=== PATIENT | male | born 1960 | race Caucasian/White ===

== ENCOUNTER 2024-02-21 17:37 | Inpatient (IN) ==
--- NOTE | 2024-02-21 18:02 | Emergency Department Note ---
Impression & Plan Chest pain, ST elevation (STEMI) myocardial infarction, Elevated troponin, Complete heart block, ACS (acute coronary syndrome) ED Provider Note HISTORY OF PRESENT ILLNESS: Patient is a 63-year-old male presenting with chest pain. Patient reports that around 1600 this evening while he was eating dessert he developed substernal chest pain. Describes it as a pressure sensation that lasted for about 5 minutes. He denies any associated shortness of breath or nausea. He states that the pain went away on its own but then he had recurrent episodes of pain over the next 2 hours, prompting him to call 911. He states that earlier today he was having some neck pain. He denies ever having chest pain like this before. Denies any DVT or PE history. Denies any history of cardiac stents. He does report a significant family history of early cardiac in his sister. His last stress test was over 20 years ago. He is not on any anticoagulation or antiplatelet therapy. He was given 324 mg of aspirin prehospital and 2 nitro. On arrival to the ER, the patient is chest pain-free. ROS: as above PHYSICAL EXAM: Constitutional: Patient appears in no acute distress. HENT: Head: Normocephalic and atraumatic. Eyes: EOMI, PERRL Mouth/Throat: Mucous membranes moist. Neck: Trachea midline. Neck supple. Cardiovascular: RRR, No murmurs, rubs or gallops. Intact distal pulses. Pulmonary/Chest: No respiratory distress. Breath sounds clear and equal bilaterally. No wheezes or rales. N Abdominal: Abdomen soft, no tenderness, rebound or guarding. Musculoskeletal: No edema, tenderness or deformity noted. Skin: Warm and dry. No rash, erythema, pallor or cyanosis Psychiatric: Appropriate mood and affect for situation. Neurological: Alert and keenly responsive. CN II-XII grossly intact, moving all extremities equally and fully. MDM: - Vitals signs stable. - History obtained via patient. History as above. - Chronic conditions affecting care: GERD - Differential diagnoses include, but are not limited to: Acute coronary syndrome; pulmonary embolism; dissection; tension pneumothorax; esophageal rupture; pneumonia - Order placed for continuous cardiac monitoring. At this time, monitor showed rate of 75 bpm with normal sinus rhythm, per my interpretation. - External medical records reviewed. EMS run sheet was reviewed. Patient was vitally stable and route. He was given 324 mg p.o. aspirin and 2 nitroglycerin. - EKG interpreted by myself showed normal sinus rhythm. Rate 69 bpm. QT 406. No acute ischemic changes. Noted to have a right bundle branch block. - Laboratory workup interpreted by myself showed normal WBC; normal PT/INR; stable electrolytes; elevated troponin (201.8); normal lipase - CXR negative for pneumonia or widened mediastinum, per my interpretation - Patient initially was going to be admitted to the hospital service. Low weight heparin bolus and drip was initially ordered. However, the patient's blood pressure dropped to 80s over 60s and his heart rate was remaining in the 30s to 40s. - Heparin drip was canceled. On reassessment, the patient just reports feeling lightheaded and woozy. He is denying any chest pain or back pain. Started on 2L NS through IV. - Repeat EKG at 1934 interpreted by myself showed normal sinus rhythm. Noted to have some ST depression in aVL and some ST elevation in lead III and aVF. Patient is still not complaining of any chest pain. However, with EKG changes, HEART alert was called at 1948 - Patient given 2L NS in ER, but his blood pressure continued to be in the 80s over 60s systolic and heart rate dropped into the 30s. Telemetry showed that the patient was in complete heart block. Repeat EKG obtained at 1956 showed sinus bradycardia. Rate 39 bpm. Patient is noted to be in a complete heart block at this time. Dobutamine gtt also started for some pressor support. - Given hypotension and bradycardia in the setting of a complete heart block, decision was made to transcutaneously pace the patient. Pacemaker was set to initial heart rate of 60 bpm and patient paced with 20 mEq. - puppy trainer, Dr. Johnson, presented to patient's bedside at 19:55. He consented the patient for Film Maker for transvenous pacing and potential cardiac stenting. - Patient's HR in the 60s-70s via transcutaneous pacing. Repeat blood pressure in the 90s systolic - Patient taken emergently to cardiac catheterization lab. [facility] I have personally spent 63 minutes of critical care time in the direct management of this patient. This includes bedside care, interpretation of diagnostic studies, and testing, discussion with consultants, patient, and family members, and other required patient management activities. This 63 minutes is in excess of all separately billable procedures. 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 Past Med/Surg History Problem List (Updated 02/21/24 @ 20:59 by Nathalie Feldman MD) ACS (acute coronary syndrome) (Acute) Complete heart block (Acute) Elevated troponin (Acute) ST elevation (STEMI) myocardial infarction (Acute) Chest pain (Acute) Conductive hearing loss in right ear Dysfunction of right eustachian tube GERD (gastroesophageal reflux disease) Seasonal allergies Left cornea abrasion (Acute) Surgical History (Updated 01/19/24 @ 09:45 by Dejah Avilez MA) History of colonoscopy Family History (Updated 01/19/24 @ 09:46 by Dejah Avilez MA) Father Hypertension Heart disease Mother Colorectal cancer Other No family history of adverse response to anesthesia No family history of bleeding disorder Social History (Updated 01/19/24 @ 09:46 by Dejah Avilez MA) Smoking Status: Never smoker Preferred Language: Hungarian marital status: current occupational status: employed current occupation: [employer] Feels Safe at Home: Yes Allergies Allergies Allergy/AdvReac Type Severity Reaction Status Date / Time No Known Allergies Allergy Unverified 08/06/14 09:52 Home Meds Home Medications Medication Instructions Recorded Confirmed loratadine 10 mg tablet (Claritin) 10 mg PO DAILY 01/19/24 02/21/24 omega 1-ggc-hin-fish oil 1,000 mg 1 cap PO DAILY 02/21/24 02/21/24 (120 mg-180 mg) capsule (Fish Oil) Previous Rx's Medication Instructions Recorded azelastine 137 mcg (0.1 %) nasal 2 spray intranasal DAILY #30 mL 01/19/24 spray aerosol fluticasone propionate 50 2 spray intranasal DAILY #15.8 01/19/24 mcg/actuation nasal grams spray,suspension Results & Data (ED) Vital Signs Vital Signs - 24 hr 02/21/24 17:41 02/21/24 17:41 02/21/24 17:50 Temperature 36.8 C Temperature Source Oral Pulse Rate 77 Pulse Rate [Apical] Pulse Rate from SpO2 Sensor Pulse Rhythm [Apical] Pulse Strength [Apical] Respiratory Rate 18 Respiratory Effort / Characteristics Non-Labored Spontaneous Respiratory Depth Normal Respiratory Pattern Regular Blood Pressure 136/78 Blood Pressure [Right Arm] Blood Pressure Mean 97 Blood Pressure Mean [Right Arm] Blood Pressure Position [Right Arm] Pulse Oximetry 96 96 96 Oxygen Delivery Method Room Air Room Air Room Air Oxygen Flow Rate 0 Sepsis Recent Fever Within 48 Hours No Sepsis New/Unexplained Change in Mental Status N/A Sepsis Action Taken by Nursing No Action Required Oxygen Flow Rate - Titration 0 02/21/24 18:49 02/21/24 18:57 02/21/24 19:11 Temperature Temperature Source Pulse Rate 68 75 Pulse Rate [Apical] 50 L Pulse Rate from SpO2 Sensor 73 Pulse Rhythm [Apical] Pulse Strength [Apical] Respiratory Rate 22 15 Respiratory Effort / Characteristics Non-Labored Spontaneous Respiratory Depth Normal Respiratory Pattern Regular Blood Pressure 139/85 Blood Pressure [Right Arm] 139/85 Blood Pressure Mean 103 Blood Pressure Mean [Right Arm] 103 Blood Pressure Position [Right Arm] Pulse Oximetry 95 97 Oxygen Delivery Method Room Air Room Air Oxygen Flow Rate Sepsis Recent Fever Within 48 Hours Sepsis New/Unexplained Change in Mental Status Sepsis Action Taken by Nursing Oxygen Flow Rate - Titration 02/21/24 19:27 02/21/24 19:42 02/21/24 19:44 Temperature Temperature Source Pulse Rate 55 L 40 L Pulse Rate [Apical] 36 L Pulse Rate from SpO2 Sensor 56 L 40 L Pulse Rhythm [Apical] Pulse Strength [Apical] Respiratory Rate 14 14 12 Respiratory Effort / Characteristics Respiratory Depth Respiratory Pattern Blood Pressure 71/45 L Blood Pressure [Right Arm] 75/42 L Blood Pressure Mean 53 Blood Pressure Mean [Right Arm] 53 Blood Pressure Position [Right Arm] Pulse Oximetry 97 98 97 Oxygen Delivery Method Room Air Room Air Room Air Oxygen Flow Rate Sepsis Recent Fever Within 48 Hours Sepsis New/Unexplained Change in Mental Status Sepsis Action Taken by Nursing Oxygen Flow Rate - Titration 02/21/24 19:46 02/21/24 19:53 02/21/24 20:03 Temperature Temperature Source Pulse Rate 28 L 43 L 57 L Pulse Rate [Apical] Pulse Rate from SpO2 Sensor 44 L Pulse Rhythm [Apical] Pulse Strength [Apical] Respiratory Rate 14 Respiratory Effort / Characteristics Respiratory Depth Respiratory Pattern Blood Pressure 59/39 L Blood Pressure [Right Arm] Blood Pressure Mean 45 Blood Pressure Mean [Right Arm] Blood Pressure Position [Right Arm] Pulse Oximetry 96 Oxygen Delivery Method Room Air Oxygen Flow Rate Sepsis Recent Fever Within 48 Hours Sepsis New/Unexplained Change in Mental Status Sepsis Action Taken by Nursing Oxygen Flow Rate - Titration 02/21/24 20:10 02/21/24 20:12 Temperature Temperature Source Pulse Rate Pulse Rate [Apical] 62 70 Pulse Rate from SpO2 Sensor Pulse Rhythm [Apical] Irregular Regular Pulse Strength [Apical] Normal Respiratory Rate 17 15 Respiratory Effort / Characteristics Non-Labored Accessory Muscle Use Non-Labored Spontaneous Respiratory Depth Normal Normal Respiratory Pattern Regular Regular Blood Pressure Blood Pressure [Right Arm] 81/51 L 92/70 L Blood Pressure Mean Blood Pressure Mean [Right Arm] 61 77 Blood Pressure Position [Right Arm] Sitting Sitting Pulse Oximetry 98 98 Oxygen Delivery Method Nasal Cannula Room Air Oxygen Flow Rate 4 Sepsis Recent Fever Within 48 Hours Sepsis New/Unexplained Change in Mental Status Sepsis Action Taken by Nursing Oxygen Flow Rate - Titration Laboratory Data 02/21/24 17:45 02/21/24 17:45 Lab Results 02/21/24 02/21/24 Range/Units 17:45 19:56 WBC 5.55 (4.8-10.8) K/ul RBC 4.62 L (4.70-6.10) M/uL Hgb 14.7 (14.0-18.0) g/dl Hct 41.8 L (42.0-52.0) % MCV 90.5 (80.0-100.0) fL MCH 31.8 (25.0-34.0) pg MCHC 35.2 (32.0-36.0) g/dL RDW Std Deviation 39.9 (36.4-46.3) fL RDW Coeff of Arun 12.1 (11.5-14.5) % Plt Count 223 (130-400) K/uL MPV 9.3 L (9.4-12.4) fL Immature Gran % (Auto) 0.4 % Neut % (Auto) 72.1 % Lymph % (Auto) 17.5 % [place] % (Auto) 5.9 % Eos % (Auto) 3.4 % Baso % (Auto) 0.7 % Neut # (Auto) 4.00 (1.40-6.50) K/uL Lymph # (Auto) 0.97 L (1.20-3.40) K/uL [place] # (Auto) 0.33 (0.11-0.59) K/uL Eos # (Auto) 0.19 (0.00-0.50) K/uL Baso # (Auto) 0.04 (0.00-0.20) K/uL Immature Gran # (Auto) 0.02 (0.01-0.20) K/uL PT 10.3 (9.0-12.0) Seconds INR 0.9 (0.9-1.1) Sodium 139 (136-145) mmol/L Potassium 3.7 (3.5-5.1) mmol/L Chloride 106 (98-107) mmol/L Carbon Dioxide 25 (21-32) mmol/L Anion Gap 8 (3-11) BUN 20 (6-23) mg/dl Creatinine 0.97 (0.6-1.4) mg/dl Est Cr Clr Drug Dosing 80.0 ml/min Est GFR ( Amer) 97.3 ml/min Est GFR (Non-Af Amer) 83.9 ml/min BUN/Creatinine Ratio 20.6 H (10-20) Glucose 125 H (70-99(Fasting)) mg/dl Calcium 9.6 (8.6-10.3) mg/dl Magnesium 2.2 (1.7-2.4) mg/dl Total Bilirubin 0.4 (0.2-1.0) mg/dl AST 19 (13-39) U/L ALT 20 (7-52) U/L Alkaline Phosphatase 77 (34-104) U/L Troponin I High Sens 201.8 H* 269.3 H* D (0-20) pg/ml Total Protein 7.1 (6.0-8.3) gm/dl Albumin 4.6 (3.4-5.0) gm/dl Globulin 2.5 (2.5-4.0) gm/dl Albumin/Globulin Ratio 1.8 (0.9-2) Lipase 24 (11-82) U/L Administered Medications Dobutamine HCl/Dextrose (Dobutamine / D5w) 500 mg in 250 mls @ 12.48 mls/hr IV .Q20H2M [facility]; Protocol Stop: 03/22/24 19:59 Last Admin: 02/21/24 20:01 Dose: 5 mcg/kg/min, 12.5 mls/hr Documented By: ONELIA Co-signed By: SAW Discontinued Medications Dobutamine HCl/Dextrose (Dobutamine 500mg / 250ml D5w) Confirm Administered Dose 500 mg IV .STK-MED ONE Stop: 02/21/24 19:57 Last Admin: 02/21/24 20:04 Dose: Not Given Documented By: ONELIA Sodium Chloride (Nss) 1,000 mls @ 999 mls/hr IV .Q1H1M ONE Stop: 02/21/24 19:02 Last Infusion: 02/21/24 20:04 Dose: Infused Documented By: Admin: 02/21/24 18:16 Dose: 999 mls/hr Documented By: ROMAIN Sodium Chloride (Nss) 1,000 mls @ 999 mls/hr IV .Q1H1M ONE Stop: 02/21/24 20:40 Last Admin: 02/21/24 19:43 Dose: 999 mls/hr Documented By: DUANE Imaging Data Radiologist's Impression: Chest X-Ray 02/21/24 17:50 XR chest 1V portable HISTORY: 63 years-old Male Chest pain, nonspecific acute chest pain COMPARISON: None TECHNIQUE: AP view of the chest FINDINGS: Cardiomediastinal and hilar silhouettes are within normal limits. No pneumothorax or pleural effusion. The lungs are clear. Bones appear intact. IMPRESSION: No acute process. ACT 112: Negative or not required by law. The above report was generated using voice recognition software. It may contain grammatical, syntax or spelling errors. Electronically signed by: Alvarez Cnodon M.D. 02/21/2024 6:31 PM Discharge Plan Visit Data Chief Complaint: Chest Pain Stated Complaint: Chest pain ED Provider: Nathalie Feldman Discharge Problem: Chest pain, ST elevation (STEMI) myocardial infarction, Elevated troponin, Complete heart block, ACS (acute coronary syndrome) Patient Disposition: Admitted As Inpatient
[2024-02-21] MEDS: SODIUM CHLORIDE 0.9% 1,000 ML IV ONE ×2 (18:16→19:43)
--- NOTE | 2024-02-21 18:33 | XRay Report ---
XR chest 1V portable HISTORY: 63 years-old Male Chest pain, nonspecific acute chest pain COMPARISON: None TECHNIQUE: AP view of the chest FINDINGS: Cardiomediastinal and hilar silhouettes are within normal limits. No pneumothorax or pleural effusion . The lungs are clear. Bones appear intact. IMPRESSION: No acute process. ACT 112: Negative or not required by law. The above report was generated using voice recognition software. It may contain grammatical, syntax o r spelling errors. Electronically signed by: Alvarez Condon M.D. 02/21/2024 6:31 PM
[2024-02-21 18:36] LABS: Basophils # (auto) 0.04 K/uL (0.00-0.20); Basophils % (auto) 0.7 %; Eosinophils # (auto) 0.19 K/uL (0.00-0.50); Eosinophils % (auto) 3.4 %; Hematocrit (blood only) 41.8 % (42.0-52.0); Hemoglobin 14.7 g/dl (14.0-18.0); Immature Granulocytes # (auto) 0.02 K/uL (0.01-0.20); Immature Granulocytes % (auto) 0.4 %; Lymphocytes # (auto) 0.97 K/uL (1.20-3.40); Lymphocytes % (auto) 17.5 %; Mean Corpuscular Hemoglobin 31.8 pg (25.0-34.0); Mean Corpuscular Hgb Conc 35.2 g/dL (32.0-36.0); Mean Corpuscular Volume 90.5 fL (80.0-100.0); Mean Platelet Volume 9.3 fL (9.4-12.4); Monocytes # (auto) 0.33 K/uL (0.11-0.59); Monocytes % (auto) 5.9 %; Neutrophils % (auto) 72.1 %; Platelet Count 223 K/uL (130-400); RDW Coefficient of Variation 12.1 % (11.5-14.5); RDW Standard Deviation 39.9 fL (36.4-46.3); Red Blood Count 4.62 M/uL (4.70-6.10); White Blood Count 5.55 K/ul (4.8-10.8)
[2024-02-21 18:59] LABS: Troponin I High Sensitivity 201.8 pg/ml (0-20)
[2024-02-21 19:01] LABS: Albumin Globulin Ratio 1.8 (0.9-2); Albumin Level 4.6 gm/dl (3.4-5.0); BUN Creatinine Ratio 20.6 (10-20); Bilirubin,Total 0.4 mg/dl (0.2-1.0); Calcium 9.6 mg/dl (8.6-10.3); Est GFR (African American) 97.3 ml/min; Est GFR (Non-African American) 83.9 ml/min; Globulin 2.5 gm/dl (2.5-4.0); Potassium 3.7 mmol/L (3.5-5.1); Total Protein 7.1 gm/dl (6.0-8.3)
[2024-02-21 19:14] LABS: INR 0.9 (0.9-1.1); Prothrombin Time 10.3 Seconds (9.0-12.0)
[2024-02-21 19:27] LABS: Magnesium 2.2 mg/dl (1.7-2.4)
[2024-02-21] MEDS ORDERED: HEPARIN SODIUM/DEXTROSE 25,000 UNITS/500 ML BAG IV SCH (19:45)
[2024-02-21] MEDS: DOBUTamine / D5W 500 MG/250 ML BAG IV SCH (20:01)
[2024-02-21] MEDS: DOBUTamine 500MG / 250ML D5W IV ONE (20:04)
[2024-02-21] MEDS: niCARdipine HCL INJ 2.5 MG/ML 10 ML AMP ONE (21:01)
[2024-02-21] MEDS: NITROGLYCERIN/D5W 100MCG/ML 20ML SYR ONE (21:02)
[2024-02-21] MEDS: FUROSEMIDE 40 MG/4 ML VIAL IV ONE (21:02)
[2024-02-21] MEDS: EPTIFIBATIDE 2 MG/ML 10 ML VIAL (CATH LAB USE ONLY) IV ONE (21:03)
[2024-02-21] MEDS: EPTIFIBATIDE 0.75 MG/ML 75MG VIAL (CATH LAB USE ONLY) IV ONE (21:03)
[2024-02-21] MEDS: MIDAZOLAM HCL 1 MG/ML 2ML VIAL ONE (21:23)
[2024-02-21] MEDS: NOREPINEPHRINE/D5W 4 MG/250 ML IV ONE (21:24)
[2024-02-21] MEDS: fentaNYL citrate PF 100 MCG/2 ML VIAL ONE (21:24)
[2024-02-21] MEDS: HEPARIN (PORCINE) 1000 UNIT/ML 10 ML (CATH LAB USE ONLY) ONE (21:24)
[2024-02-21] MEDS: IODIXANOL (VISIPAQUE) 320 MG/ML 100ML IV ONE (21:25)
[2024-02-21] MEDS: OPTIRAY 350 ONE (21:30)
[2024-02-21] MEDS: TICAGRELOR 90 MG TAB ONE (21:32)
[2024-02-21] MEDS ORDERED: ALBUT/IPRATROP 3MG/0.5MG NEB 3 ML VIAL INH PRN (21:52)
--- NOTE | 2024-02-21 21:56 | Cardiac Catheterization ---
ACC Data: Parer Cardiac Status Clinical evaluation leading to the procedure The patient presented with chest pain and EKG changes consistent with inferior ischemia complicated by complete heart block. CAD Presenation: STEMI Anginal Classification: CCS IV Heart Failure: NYHA Class: CCS II Cardiogenic Shock within 24 Hours: No Cardiac Arrest within 24 Hours: No Imaging Studies Past 6 Months: No Stress Studies Past 6 Months: No Standard Exercise Test: No Stress Echocardiogram: No Stress Testing w/SPECT MPI: No Cardiac CTA: No STEMI OR Non-STEMI Symptom Onset Date: 02/21/24 Symptom Onset Time: 18:00 Thrombolytics: No Coronary Anatomy Dominant: Right Left Main (% Stenosis): Normal LAD (% Stenosis): Mid (95%) D1 (% Stenosis): Mid (90%) R PDA (% Stenosis): Proximal (100%) Left Ventricular Angiography EF (%): No wall motion abnormality, ejection fraction 80% Mitral Regurgitation: None Diagnostic Physicians Name: Feliciano Johnson MD Status: Emergency Closure Device Percutaneous Entry Location: Femoral (Per close) Recommendations: PCI without planned CABG Lesion Segment Name: 100% mid PDA Culprit Artery: Yes Stenosis Prior to Rx (%): 100% Chronic Total Occlusion: Yes Pre-Procedure KODAK Flow: 0 Previously Treated Lesion: No Lesion Complexity: High/C Lesion Length (mm): 20 mm Thrombus Present: Yes Bifurcation Lesion: No Guidewire Across Lesion: Yes Lesion #2 Segment Name: Mid LAD Culprit Artery: No Stenosis Prior to Rx (%): 95% Chronic Total Occlusion: No IVUS: No FFR: No Pre-Procedure KODAK Flow: 2 Previously Treated Lesion: No Lesion Complexity: Non-High/Non-C Lesion Length (mm): 10 mm Thrombus Present: No Bifurcation Lesion: No Guidewire Across Lesion: No Intraprocedure Events Significant Disection: No Perforation: No Cardiac Cath Procedure Full Procedure Date February 21, 2024 Pre-Procedure Diagnosis Pre-Procedure Diagnosis: STEMI AUC Score AUC Score: 100 Post-Procedure Diagnosis Post-Procedure Diagnosis: Severe CAD and Successful PCI Procedure(s) Performed Procedure(s) Performed: Coronary Angiography, Left Heart Cath, LV Angiography, PTCA, Drug Eluting Stent and Temporary Pacemaker Mold Puller Feliciano Johnson MD Marine Service Manager(s) [place] Estimated Blood Loss Estimated Blood Loss: 20 Medication(s) Medication(s): Aspirin, Fentanyl, Heparin and Versed Medication(s): Dobutamine, heparin, Brilinta Summary of Findings The patient was brought to the cardiac catheterization laboratory with an external pacemaker in place. The right groin was prepped and draped in the usual manner. The skin and subcutaneous tissue were anesthetized with 1% lidocaine. Using a percutaneous technique a 6 [place] sheath was placed retrograde in the right common femoral vein and through the sheath under fluoroscopic control a temporary pacemaker was positioned in the right ventricle. A 6 [place] sheath was placed retrograde in the right common femoral artery. Selective angiography of the right coronary artery was performed with a Janis right 4, selective angiography of the left coronary artery system was performed with a Janis left 4 catheter. The right coronary artery is dominant the distal vessel was very tortuous and the right dominant PDA was totally occluded. The left main was normal bifurcating into a type III LAD and circumflex there was a 95% stenosis in the mid LAD immediately distal to a diagonal branch. There was a 90% stenosis in the midportion of the diagonal. The circumflex gave off a high first OM with 2 branches both of which had luminal irregularities only. The mid circumflex had luminal irregularity. Patient was bolused with 8000 units of heparin and Integrilin, the right coronary artery was engaged with a 6 [place] Amplatz guide through this guide the distal occlusion was crossed with a Bunny wire, predilatation was performed with a 2.5 mm balloon. The vessel was then sequentially stented with a 2.5 x 18 and 2 x 16 Xience stent. Attention was then turned to the LAD left main was engaged with a Janis left 4 guide. The lesion was crossed with the Bunny wire. Predilatation was performed with a 2.5 balloon. The LAD was then stented with a 3 x 16 Xience stent. At the end of the procedure the patient had KODAK-3 flow. At the end of the procedure the arterial sheath was pulled and the arteriotomy closed with Perclose. The venous sheath was sewn in place, the temporary pacemaker was left in place at demand rate of 60 at 10 mg. Hemodynamics Rest Ao:: 94/54 Final Ao: 131/69 LV: 125/7 Recommendations Recommendations: PCI without planned CABG Specimens Specimens: None Radiation Exposure (mGy) mGy 3920 DAP 377.46 Contrast (mls) 250 Procedural Complication(s) None Disposition ICU I attest to the content of the Intraoperative Record and any orders documented therein. Any exceptions are noted below. PG Care Time/CCT Total # of Minutes Spent Total Time Spent with Patient: Total time spent is greater than 50% in coordination of care (as documented) at patient's floor/unit and/or counseling patient:
--- NOTE | 2024-02-21 22:00 | History & Physical Report ---
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 While in the ED, emergent care included 2 L bolus normal saline, started on heparin drip, placed on dobutamine drip, and transcutaneous pacer Patient did have transcutaneous pacer placed during catheterization, and decision was made by cardiology to leave transcutaneous pacer in overnight Vital signs and heart rate improved and stable Aspirin 81 mg daily Brilinta 90 mg p.o. twice daily Lipitor 80 mg p.o. daily Lisinopril 2.5 mg p.o. daily Metoprolol succinate 12.5 mg p.o. daily Patient was given furosemide 40 mg IV prior to leaving the cardiac cath suite Give Klor-Con 40 mEq p.o. x 1 for a potassium of 3.7. Magnesium was 2.2 CBC with differential, chemistry profile, magnesium and troponin levels in the a.m. 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 Primary Care Provider: Crow Torres MD The patient is a 63-year-old male with past medical history including conductive hearing loss right ear, GERD, and seasonal allergies. He had initial development of chest pain around 4:00 this afternoon, about 5 minutes duration, and after he ate recurred a number of episodes afterwards, he called 911 and brought to the ED for assessment significant workup in the emergency department included a troponin 201.8, and EKG showing ST elevations in leads III and aVF with ST depressions in aVL. The patient initially had maintained blood pressure, but then developed hypotension to 75/40, and heart rhythm became variable including episodes of third-degree heart block. Heart alert was called, and patient was taken emergently to the [facility], where he received a TAISHA to a occluded RCA lesion, and TAISHA to a mid LAD lesion. Patient was then admitted to the ICU for ongoing care Allergies Allergy/AdvReac Type Severity Reaction Status Date / Time No Known Allergies Allergy Unverified 08/06/14 09:52 Home Medications Medication Instructions Recorded Confirmed Type azelastine 137 mcg (0.1 %) nasal 2 spray intranasal DAILY #30 mL 01/19/24 02/21/24 Rx spray aerosol fluticasone propionate 50 2 spray intranasal DAILY #15.8 01/19/24 02/21/24 Rx mcg/actuation nasal grams spray,suspension loratadine 10 mg tablet (Claritin) 10 mg PO DAILY 01/19/24 02/21/24 History omega 7-jyx-zjq-fish oil 1,000 mg 1 cap PO DAILY 02/21/24 02/21/24 History (120 mg-180 mg) capsule (Fish Oil) Past Med/Surg History Problem List (Updated 02/22/24 @ 04:03 by Jaime Man MD) Admitted to intensive care unit Hypotension Occlusion of right coronary artery 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 ACS (acute coronary syndrome) (Acute) Complete heart block (Acute) Elevated troponin (Acute) ST elevation (STEMI) myocardial infarction (Acute) Chest pain (Acute) Conductive hearing loss in right ear Dysfunction of right eustachian tube GERD (gastroesophageal reflux disease) Seasonal allergies Left cornea abrasion (Acute) Surgical History (Updated 01/19/24 @ 09:45 by Dejah Avilez MA) History of colonoscopy Family History (Updated 01/19/24 @ 09:46 by Dejah Avilez MA) Father Hypertension Heart disease Mother Colorectal cancer Other No family history of adverse response to anesthesia No family history of bleeding disorder Social History (Updated 01/19/24 @ 09:46 by Dejah Avilez MA) Smoking Status: Unknown if ever smoked Hx Alcohol Use: Yes Alcohol type: wine Hx Substance Use: No Preferred Language: Palestinian Communication Ability: Effective Directory Assistance Operator Required: No Beliefs That Will Affect Care: None marital status: Current Living Situation: Spouse current occupational status: employed current occupation: [employer] Other Information That Helps Us Care for You: No Feels Safe at Home: Yes Safety Concerns: Feels Safe At This Time Assistive Devices: None Review of Systems Review of Systems: The patient denies palpitations, cough, lower extremity swelling, sore throat, fevers, chills, sweats, fatigue, nausea, vomiting, diarrhea , constipation, abdominal pain, pelvic pain, blood in urine or stool, dysuria, urinary frequency or urgency, memory loss, loss of consciousness, rash, abnormal bruising or bleeding, imbalance, focal or generalized weakness, numbness or tingling in arms or legs, generalized arthralgias or myalgias, back or neck pain, or night sweats. The review of systems is otherwise negative other than for that already noted above, and at least 10 systems have been reviewed. Physical Exam Physical Exam: When seen in the ED, the patient is awake, alert and oriented 3, well developed and well nourished, normocephalic atraumatic, diaphoretic with chest pain HEENT--PERRL, EOMI, mucous membranes and oropharynx dry. Neck--supple. No JVD. No bruits. Thyroid normal, trachea midline, no adenopathy. Heart--normal S1 and S2. No murmurs, rubs or gallops. Lungs--clear bilaterally, no respiratory distress, no accessory muscle use. Abdomen--normal bowel sounds and soft. Nontender. Nondistended, no hernias or masses, no organomegaly. Extremities--no cyanosis or clubbing. No edema. Dermatologic--normal skin turgor, normal color, no abnormal lymph nodes, no rash. Neurologic--cranial nerves II through XII grossly intact. Rheumatologic--limited exam due to emergent nature of coronary issues Psychiatric--normal affect. Results & Data Results & Data Vital Signs (Past 12 Hours) Vital Signs Temp Pulse Pulse Resp BP BP Pulse Ox 02/21/24 20:12 70 15 92/70 L 98 02/21/24 20:10 62 17 81/51 L 98 02/21/24 20:03 57 L 14 59/39 L 96 02/21/24 19:53 43 L 02/21/24 19:46 28 L 02/21/24 19:44 36 L 12 75/42 L 97 02/21/24 19:42 40 L 14 71/45 L 98 02/21/24 19:27 55 L 14 97 02/21/24 19:11 50 L 15 139/85 97 02/21/24 18:57 75 22 139/85 95 02/21/24 18:49 68 02/21/24 17:50 96 02/21/24 17:41 96 02/21/24 17:41 36.8 C 77 18 136/78 96 O2 Del Method O2 Flow Rate 02/21/24 20:12 Room Air 02/21/24 20:10 Nasal Cannula 4 02/21/24 20:03 Room Air 02/21/24 19:53 02/21/24 19:46 02/21/24 19:44 Room Air 02/21/24 19:42 Room Air 02/21/24 19:27 Room Air 02/21/24 19:11 Room Air 02/21/24 18:57 Room Air 02/21/24 18:49 02/21/24 17:50 Room Air 02/21/24 17:41 Room Air 0 02/21/24 17:41 Room Air Laboratory Results Laboratory Results WBC 5.55 K/ul (4.8-10.8) 02/21/24 17:45 RBC 4.62 M/uL (4.70-6.10) L 02/21/24 17:45 Hgb 14.7 g/dl (14.0-18.0) 02/21/24 17:45 Hct 41.8 % (42.0-52.0) L 02/21/24 17:45 MCV 90.5 fL (80.0-100.0) 02/21/24 17:45 MCH 31.8 pg (25.0-34.0) 02/21/24 17:45 MCHC 35.2 g/dL (32.0-36.0) 02/21/24 17:45 RDW Std Deviation 39.9 fL (36.4-46.3) 02/21/24 17:45 RDW Coeff of Arun 12.1 % (11.5-14.5) 02/21/24 17:45 Plt Count 223 K/uL (130-400) 02/21/24 17:45 MPV 9.3 fL (9.4-12.4) L 02/21/24 17:45 Immature Gran % (Auto) 0.4 % 02/21/24 17:45 Neut % (Auto) 72.1 % 02/21/24 17:45 Lymph % (Auto) 17.5 % 02/21/24 17:45 [place] % (Auto) 5.9 % 02/21/24 17:45 Eos % (Auto) 3.4 % 02/21/24 17:45 Baso % (Auto) 0.7 % 02/21/24 17:45 Neut # (Auto) 4.00 K/uL (1.40-6.50) 02/21/24 17:45 Lymph # (Auto) 0.97 K/uL (1.20-3.40) L 02/21/24 17:45 [place] # (Auto) 0.33 K/uL (0.11-0.59) 02/21/24 17:45 Eos # (Auto) 0.19 K/uL (0.00-0.50) 02/21/24 17:45 Baso # (Auto) 0.04 K/uL (0.00-0.20) 02/21/24 17:45 Immature Gran # (Auto) 0.02 K/uL (0.01-0.20) 02/21/24 17:45 PT 10.3 Seconds (9.0-12.0) 02/21/24 17:45 INR 0.9 (0.9-1.1) 02/21/24 17:45 Activ Coag Time Kaolin 275 SECONDS (94-140) H 02/21/24 21:03 Sodium 139 mmol/L (136-145) 02/21/24 22:52 Potassium 4.0 mmol/L (3.5-5.1) 02/21/24 22:52 Chloride 107 mmol/L (98-107) 02/21/24 22:52 Carbon Dioxide 26 mmol/L (21-32) 02/21/24 22:52 Anion Gap 6 (3-11) 02/21/24 22:52 BUN 21 mg/dl (6-23) 02/21/24 22:52 Creatinine 1.12 mg/dl (0.6-1.4) 02/21/24 22:52 Est Cr Clr Drug Dosing 69.3 ml/min 02/21/24 22:52 Est GFR ( Amer) 81.7 ml/min 02/21/24 22:52 Est GFR (Non-Af Amer) 70.5 ml/min 02/21/24 22:52 BUN/Creatinine Ratio 18.8 (10-20) 02/21/24 22:52 Glucose 162 mg/dl (70-99(Fasting)) H 02/21/24 22:52 POC Glucose 128 mg/dl (70-99) H 02/21/24 23:05 Calcium 8.0 mg/dl (8.6-10.3) L 02/21/24 22:52 Magnesium 2.2 mg/dl (1.7-2.4) 02/21/24 17:45 Total Bilirubin 0.4 mg/dl (0.2-1.0) 02/21/24 17:45 AST 19 U/L (13-39) 02/21/24 17:45 ALT 20 U/L (7-52) 02/21/24 17:45 Alkaline Phosphatase 77 U/L (34-104) 02/21/24 17:45 Troponin I High Sens 1011.7 pg/ml (0-20) H* D 02/21/24 22:52 Total Protein 7.1 gm/dl (6.0-8.3) 02/21/24 17:45 Albumin 4.6 gm/dl (3.4-5.0) 02/21/24 17:45 Globulin 2.5 gm/dl (2.5-4.0) 02/21/24 17:45 Albumin/Globulin Ratio 1.8 (0.9-2) 02/21/24 17:45 Lipase 24 U/L (11-82) 02/21/24 17:45 Nasal Screen MRSA (PCR) Negative (Negative) 02/21/24 Unknown Impressions Chest X-Ray 02/21/24 17:50 XR chest 1V portable HISTORY: 63 years-old Male Chest pain, nonspecific acute chest pain COMPARISON: None TECHNIQUE: AP view of the chest FINDINGS: Cardiomediastinal and hilar silhouettes are within normal limits. No pneumothorax or pleural effusion. The lungs are clear. Bones appear intact. IMPRESSION: No acute process. ACT 112: Negative or not required by law. The above report was generated using voice recognition software. It may contain grammatical, syntax or spelling errors. Electronically signed by: Alvarez Condon M.D. 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
--- NOTE | 2024-02-21 22:42 | Critical Care Consultation ---
Date of Consultation February 21, 2024 Assessment & Plan (1) ST elevation (STEMI) myocardial infarction: Patient presented with chest pain and inferior ST elevation. Now presents to ICU s/p cardiac cath where he received 2 stents to RCA and 1 stent to LAD. No prior cardiac history. - Continue Integrilin drip until 0600 per cardiology - Hold beta-jocy/antihypertensives due to soft pressure and complete heart block. - ASA, Brilinta, statin - Follow-up TTE - Admitted to ICU for further monitoring. Continuous monitor on telemetry. Further disposition per cardiology (2) Complete heart block: Likely secondary to underlying acute coronary syndrome with culprit lesion of the RCA. Patient initially bradycardic and hypotensive and underwent transvenous pacer. Heart rate improved post cath and now sinus rhythm in the 90s. Continuous monitoring on telemetry, and will continue with transvenous pacer at rate of 60. Further management per cardiology (3) GERD (gastroesophageal reflux disease): Continue PPI History of Present Illness Attending Physician: Jaime Man MD History of Present Illness Patient is a 63-year-old male with no significant past medical history who presented to the emergency department earlier this evening with acute chest pain. Patient states that he has never had pain similar to this. On arrival to the emergency department he was noted to have ST elevation on his EKG. Heart alert was initiated he was taken to the [facility] where he received 2 stents to the RCA, and 1 stent to the LAD. Patient was bradycardic as well and transvenous pacer was inserted. He now presents to the ICU post cath for further management. On arrival to the ICU the patient is alert and oriented, a nd hemodynamically stable without acute distress. He is maintaining oxygen saturations on room air. He currently denies further chest pain. He denies recent illness or fevers, headache or congestion, cough, shortness of breath, palpitations, nausea or vomiting, abdominal pain, swelling in hands or feet,. Prior to this event he was in his normal state of health. He denies previous cardiac history. Allergies Allergy/AdvReac Type Severity Reaction Status Date / Time No Known Allergies Allergy Unverified 08/06/14 09:52 Home Medications Medication Instructions Recorded Confirmed Type azelastine 137 mcg (0.1 %) nasal 2 spray intranasal DAILY #30 mL 01/19/24 02/21/24 Rx spray aerosol fluticasone propionate 50 2 spray intranasal DAILY #15.8 01/19/24 02/21/24 Rx mcg/actuation nasal grams spray,suspension loratadine 10 mg tablet (Claritin) 10 mg PO DAILY 01/19/24 02/21/24 History omega 8-nxu-jzm-fish oil 1,000 mg 1 cap PO DAILY 02/21/24 02/21/24 History (120 mg-180 mg) capsule (Fish Oil) Patient History Surgical History (Updated 01/19/24 @ 09:45 by Dejah Avilez MA) History of colonoscopy Family History (Updated 01/19/24 @ 09:46 by Dejah Avilez MA) Father Hypertension Heart disease Mother Colorectal cancer Other No family history of adverse response to anesthesia No family history of bleeding disorder Social History (Updated 01/19/24 @ 09:46 by Dejah Avilez MA) Smoking Status: Never smoker Preferred Language: Malay marital status: current occupational status: employed current occupation: [employer] Feels Safe at Home: Yes Review of Systems Review of Systems: All systems reviewed & are unremarkable except as noted in HPI & below Physical Exam Constitutional: cooperative and comfortable Eyes: PERRL, conjunctivae normal, anicteric sclerae ENMT: external ear and nose normal, oropharynx normal Neck: trachea midline, no thyromegaly Respiratory: normal respiratory effort, lungs clear to auscultation Cardiovascular: RRR, no murmur, no edema Heart Sounds: normal S1 and normal S2; no murmur Gastrointestinal (Abdomen): normal bowel sounds, soft, nontender, no hepatosplenomegaly Musculoskeletal: no cyanosis or clubbing, extremities motor strength 5/5 Skin: no rashes, warm and dry Neurologic: PERRL, EOMI, accommodation nl, no face palsy, no dysarthria Psychiatric: A+Ox3, euthymic affect Results & Data Results & Data Vital Signs (Past 12 Hours) Vital Signs Temp Pulse Pulse Resp BP BP Pulse Ox 02/21/24 20:12 70 15 92/70 L 98 02/21/24 20:10 62 17 81/51 L 98 02/21/24 20:03 57 L 14 59/39 L 96 02/21/24 19:53 43 L 02/21/24 19:46 28 L 02/21/24 19:44 36 L 12 75/42 L 97 02/21/24 19:42 40 L 14 71/45 L 98 02/21/24 19:27 55 L 14 97 02/21/24 19:11 50 L 15 139/85 97 02/21/24 18:57 75 22 139/85 95 02/21/24 18:49 68 02/21/24 17:50 96 02/21/24 17:41 96 02/21/24 17:41 36.8 C 77 18 136/78 96 O2 Del Method O2 Flow Rate 02/21/24 20:12 Room Air 02/21/24 20:10 Nasal Cannula 4 02/21/24 20:03 Room Air 02/21/24 19:53 02/21/24 19:46 02/21/24 19:44 Room Air 02/21/24 19:42 Room Air 02/21/24 19:27 Room Air 02/21/24 19:11 Room Air 02/21/24 18:57 Room Air 02/21/24 18:49 02/21/24 17:50 Room Air 02/21/24 17:41 Room Air 0 02/21/24 17:41 Room Air Coding Level of Care Code 40132 IN/OBS CONSULT LVL 2,35M Diagnoses ST elevation (STEMI) myocardial infarction I21.3 Complete heart block I44.2 GERD (gastroesophageal reflux disease) K21.9 Time Spent (min) 38
[2024-02-21] MEDS: STAT IV Infusion **Titration per Protocol STA (22:49)
[2024-02-21] MEDS: HEPARIN SOD (PORCINE) 1000 UNIT/ML IV ONE (22:49)
[2024-02-21] MEDS: Heparin IV Adult Wt-Based Low-Dose w/ INITIAL Bolus Protocol IV STA (22:49)
[2024-02-21] MEDS: POTASSIUM CHLORIDE CRTAB 20 MEQ TABCR PO STA (22:57)
[2024-02-21 23:33] LABS: BUN Creatinine Ratio 18.8 (10-20); Creatinine Clr Calc Pharmacy 69.3 ml/min; Est GFR (African American) 81.7 ml/min; Est GFR (Non-African American) 70.5 ml/min
[2024-02-21 23:53] LABS: Troponin I High Sensitivity 1011.7 pg/ml (0-20)
--- NOTE | 2024-02-22 04:14 | Billing Data ---
Date of Service February 22, 2024 Coding Level of Care Code 18847 CRITICAL CARE M
[2024-02-22 05:07] LABS: Basophils # (auto) 0.01 K/uL (0.00-0.20); Basophils % (auto) 0.1 %; Eosinophils # (auto) 0.01 K/uL (0.00-0.50); Eosinophils % (auto) 0.1 %; Hematocrit (blood only) 40.9 % (42.0-52.0); Hemoglobin 14.1 g/dl (14.0-18.0); Immature Granulocytes # (auto) 0.01 K/uL (0.01-0.20); Immature Granulocytes % (auto) 0.1 %; Lymphocytes # (auto) 0.55 K/uL (1.20-3.40); Lymphocytes % (auto) 8.2 %; Mean Corpuscular Hemoglobin 31.2 pg (25.0-34.0); Mean Corpuscular Hgb Conc 34.5 g/dL (32.0-36.0); Mean Corpuscular Volume 90.5 fL (80.0-100.0); Monocytes # (auto) 0.38 K/uL (0.11-0.59); Monocytes % (auto) 5.6 %; Neutrophils # (auto) 5.78 K/uL (1.40-6.50); Neutrophils % (auto) 85.9 %; Platelet Count 189 K/uL (130-400); RDW Coefficient of Variation 12.4 % (11.5-14.5); Red Blood Count 4.52 M/uL (4.70-6.10); White Blood Count 6.74 K/ul (4.8-10.8)
[2024-02-22 05:25] LABS: Albumin Level 4.1 gm/dl (3.4-5.0); Bilirubin Direct 0.1 mg/dl (0-0.2); Bilirubin,Total 0.7 mg/dl (0.2-1.0); Phosphorus 3.7 mg/dl (2.5-4.9); Total Protein 6.3 gm/dl (6.0-8.3)
[2024-02-22 05:40] LABS: Troponin I High Sensitivity 3931.6 pg/ml (0-20)
[2024-02-22 05:42] LABS: Partial Thromboplastin Ratio 0.9; Partial Thromboplastin Time 25 Seconds (21-31); Prothrombin Time 10.5 Seconds (9.0-12.0)
--- NOTE | 2024-02-22 06:38 | Critical Care Progress Note ---
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: (3) Occlusion of right coronary artery: (4) ACS (acute coronary syndrome): (5) Complete heart block: (6) ST elevation (STEMI) myocardial infarction: Plan Assessment: 63 yo male who presented with acute chest pain and inferior ST elevation, admitted to the ICU s/p cardiac cath Critical care indication: risk of life-threatening complications s/p cardiac cath - 2 stents to RCA and 1 stent to LAD Plan: Neurologic CAM ICU negative Cardiac Inferior ST elevation s/p cardiac cath- 2 stent to RCA and 1 stent to LAD - ASA, Brilinta, statin - Follow up TTE - Metoprolol, lisinopril Complete heart block - Bradycardic secondary to ischemic changes to RCA - underwent transvenous pacer - Now sinus rhythm in the 90s BP stable at this time Continue monitoring on telemetry Further management by cardiology Respiratory No prior history of respiratory disease Maintaining adequate oxygen saturation 94- on Oxymask Gastrointestinal Diet: heart healthy Renal/electrolytes No significant electrolyte derangement at this time Replete electrolytes as needed Genitourinary No concerns at this time Endocrine BSG stable Continue ISS per protocol Hematologic Hgb stable at this time Will monitor for any drops in the setting of heparin gtt Follow daily CBC Infectious disease Afebrile since admission No concern for infection at this time Monitor fever curve Integumentary No concerns at this time Lines/access PIVs intact Prophylaxis DVT ppx: SCDs Thank you the opportunity to participate in this patient's care. Please see attending documentation for further recommendations. Admission and Anticipated Discharge Date Admission Date: February 21, 2024 Supervising Physician Co-Signing Physician Notes Dr. Fransico Knutson was resident physician during care of patient. I separately evaluated patient for canales portions of the history and the exam. I was present during the critical portion of medical decision making, and I discussed the case with the resident. I generally agree with the findings and plan. Patient reports that he feels like there is fluid in his lungs that he feels like he can cough up. No overt signs of congestive heart failure; has not required any support from transvenous pacer. Reviewed echocardiogram EF greater than 70% with no wall motion abnormalities. Stable for downgrade out of ICU. Subjective 63 y/o male with no significant past medical history who presented with acute chest pain founded with inferior ST elevation. He was taken to the lab cath overnight where he received 2 stents to the RCA and 1 stent to the LAD. He was bradycardic as well, and a transvenous pacer was placed. He remains oriented and alert hemodynamically stable. Denied any chest pain at the moment. He denied any headache, congestion, SOB, abdominal pain, palpitations, nausea or vomiting Review of Systems Review of Systems: All systems reviewed & are unremarkable except as noted in HPI & below Physical Exam Constitutional: WD/WN, vitals as above no acute distress Eyes: PERRL, conjunctivae normal, anicteric sclerae ENMT: external ear and nose normal, oropharynx normal Neck: trachea midline, no thyromegaly Respiratory: normal respiratory effort Auscultation: + crackles Cardiovascular: RRR, no murmur, no edema Heart Sounds: normal S1 and normal S2; no murmur Gastrointestinal (Abdomen): normal bowel sounds, soft, nontender, no hepatosplenomegaly Musculoskeletal: no cyanosis or clubbing, extremities motor strength 5/5 Skin: no rashes, warm and dry Neurologic: PERRL, EOMI, accommodation nl, no face palsy, no dysarthria Results & Data Results & Data Vital Signs (Past 12 Hours) Vital Signs Temp Pulse Pulse Resp BP BP Pulse Ox 02/22/24 05:06 97 H 13 120/80 93 02/22/24 04:00 87 14 110/73 95 02/22/24 03:30 90 18 95 02/22/24 03:03 88 21 95 02/22/24 03:02 111/73 02/22/24 02:00 36.7 C 80 16 115/77 97 02/22/24 01:06 93 H 18 113/77 98 02/22/24 00:06 91 H 25 H 124/82 95 02/22/24 00:00 91 H 02/21/24 23:05 92 H 25 H 92 02/21/24 22:47 90 19 94 02/21/24 22:19 36.4 C L 90 20 97/67 L 95 02/21/24 22:11 99 H 23 94 02/21/24 22:10 101/70 02/21/24 22:00 02/21/24 20:12 70 15 92/70 L 98 02/21/24 20:10 62 17 81/51 L 98 02/21/24 20:03 57 L 14 59/39 L 96 02/21/24 19:53 43 L 02/21/24 19:46 28 L 02/21/24 19:44 36 L 12 75/42 L 97 02/21/24 19:42 40 L 14 71/45 L 98 02/21/24 19:27 55 L 14 97 02/21/24 19:11 50 L 15 139/85 97 02/21/24 18:57 75 22 139/85 95 02/21/24 18:49 68 O2 Del Method O2 Flow Rate 02/22/24 05:06 2 02/22/24 04:00 2 02/22/24 03:30 02/22/24 03:03 2 02/22/24 03:02 02/22/24 02:00 Oxymask 10 02/22/24 01:06 02/22/24 00:06 02/22/24 00:00 02/21/24 23:05 02/21/24 22:47 02/21/24 22:19 Oxymask 15 02/21/24 22:11 02/21/24 22:10 02/21/24 22:00 Oxymask 15 02/21/24 20:12 Room Air 02/21/24 20:10 Nasal Cannula 4 02/21/24 20:03 Room Air 02/21/24 19:53 02/21/24 19:46 02/21/24 19:44 Room Air 02/21/24 19:42 Room Air 02/21/24 19:27 Room Air 02/21/24 19:11 Room Air 02/21/24 18:57 Room Air 02/21/24 18:49
--- NOTE | 2024-02-22 07:13 | XRay Report ---
XR chest 1V portable CLINICAL HISTORY: STEMI TECHNIQUE: Single frontal radiograph of the chest was obtained. Comparison: Comparison is made to chest radiograph 02/21/2024 FINDINGS: No lines and tubes are seen. The cardiomediastinal silhouette is normal. The lungs are clear. No evid ence of pleural effusion or pneumothorax. IMPRESSION: No acute chest disease. ACT 112: Negative or not required by law. Electronically signed by: Vick López M.D. 02/22/2024 7:12 AM
[2024-02-22] MEDS: ICU Protocol for HYPERglycemia SCH (07:24)
--- NOTE | 2024-02-22 08:01 | Hospitalist Progress Note ---
Date of Service February 22, 2024 Assessment & Plan (1) ST elevation (STEMI) myocardial infarction: Plan: STEMI/heart alert/intermittent complete heart block, total RCA occlusion and mid LAD occlusion with concerns for cardiogenic shock and hypotension Stent x 2 to RCA and X1 to LAD Patient did have transcutaneous pacer placed during catheterization, and decision was made by cardiology to remove transvenous pacer on 02/21 Aspirin 81 mg daily + Brilinta 90 mg p.o. twice daily Lipitor 80 mg p.o. daily Lisinopril 2.5 mg p.o. daily Metoprolol succinate 12.5 mg p.o. daily Patient was given furosemide 40 mg IV prior to leaving the cardiac cath suite Agreed from ICU. Patient's lipid panel does show LDL at 142, HDL 52 Admission and Anticipated Discharge Date Admission Date: February 21, 2024 Subjective Patient seen in company of his family he was having no further chest discomfort he had no additional heart block or need for pacemaker therapy the right groin intra-arterial pacemaker (temporary pacemaker) in place but was removed later in the day and patient downgraded to progressive care unit status Physical Exam Physical Exam: Card exam is regular Lungs are clear will listen to anteriorly Groin has pacemaker in place with bandage and there is no bruits or pulsatile masses distal capillary refill is intact to the right leg Results & Data Results & Data Vital Signs (Past 12 Hours) Vital Signs Temp Pulse Pulse Resp BP BP Pulse Ox 02/22/24 07:47 02/22/24 06:00 93 H 20 123/79 94 02/22/24 05:06 97 H 13 120/80 93 02/22/24 04:00 87 14 110/73 95 02/22/24 03:30 90 18 95 02/22/24 03:03 88 21 95 02/22/24 03:02 111/73 02/22/24 02:00 98.1 F 80 16 115/77 97 02/22/24 01:06 93 H 18 113/77 98 02/22/24 00:06 91 H 25 H 124/82 95 02/22/24 00:00 91 H 02/21/24 23:05 92 H 25 H 92 02/21/24 22:47 90 19 94 02/21/24 22:19 97.5 F L 90 20 97/67 L 95 02/21/24 22:11 99 H 23 94 02/21/24 22:10 101/70 02/21/24 22:00 02/21/24 20:12 70 15 92/70 L 98 02/21/24 20:10 62 17 81/51 L 98 02/21/24 20:03 57 L 14 59/39 L 96 O2 Del Method O2 Flow Rate 02/22/24 07:47 Oxymask 2 02/22/24 06:00 02/22/24 05:06 2 02/22/24 04:00 2 02/22/24 03:30 02/22/24 03:03 2 02/22/24 03:02 02/22/24 02:00 Oxymask 10 02/22/24 01:06 02/22/24 00:06 02/22/24 00:00 02/21/24 23:05 02/21/24 22:47 02/21/24 22:19 Oxymask 15 02/21/24 22:11 02/21/24 22:10 02/21/24 22:00 Oxymask 15 02/21/24 20:12 Room Air 02/21/24 20:10 Nasal Cannula 4 02/21/24 20:03 Room Air Laboratory Results Reviewed CBC reviewed chemistry LFTs reviewed mild transaminitis will follow PG Care Time/CCT Total # of Minutes Spent Total Time Spent with Patient: Total time spent is greater than 50% in coordination of care (as documented) at patient's floor/unit and/or counseling patient: Coding Level of Care Code 81067 SUB INP/OBS CARE 2/35MIN Diagnoses ST elevation (STEMI) myocardial infarction I21.3
[2024-02-22] MEDS: METOPROLOL SUCC 25MG EXT REL TAB PO SCH (08:28)
[2024-02-22] MEDS: ASPIRIN 81 MG ECTAB PO SCH (08:28)
[2024-02-22] MEDS: TICAGRELOR 90 MG TAB PO SCH (08:28)
[2024-02-22] MEDS: lisinopril 2.5 MG TAB PO SCH (08:28)
[2024-02-22] MEDS: ATORVASTATIN 40 MG TAB PO SCH (08:28)
[2024-02-22 08:45] LABS: Chol HDL Ratio 4.2 (0-5)
[2024-02-22] MEDS ORDERED: ROSUVASTATIN CALCIUM 20 MG TAB PO SCH (09:00)
[2024-02-22 09:10] LABS: Estimated Average Glucose 105 mg/dl; Hemoglobin A1C 5.3 % (4.5-5.6)
--- NOTE | 2024-02-22 10:16 | XCELERA ---
[id number]
[2024-02-22] MEDS ORDERED: PANTOprazole 40 MG in SYRINGE 0 ML IV SCH (11:00)
[2024-02-22] MEDS ORDERED: FUROSEMIDE INJ 20 MG/2 ML VIAL IV ONE (11:30)
--- NOTE | 2024-02-22 12:00 | Billing Data ---
Date of Service February 22, 2024 Coding Level of Care Code 90552 SUB INP/OBS CARE MIN
--- NOTE | 2024-02-22 16:22 | Cardiology Consultation ---
Date of Consultation February 22, 2024 Assessment & Plan (1) ST elevation (STEMI) myocardial infarction: -troponin has peaked at 11,000. -echocardiogram notes hyperdynamic systolic function, LVH, and no wall motion abnormalities. -continue Brilinta, aspirin, metoprolol succinate, and lisinopril. -dual anti-platelet therapy for least 1 year. (2) Complete heart block: -likely secondary to the acute event. -pacemaker has not fired during his ICU stay. -will remove pacemaker lead. (3) Hypercholesterolemia: -continue high-intensity statin. History of Present Illness Attending Physician: Barrera Giang MD History of Present Illness Mr. Blevins is a 63-year-old male admitted yesterday as a heart alert. This consultation was ordered to assistance cardiac management. The patient was in his usual state of health until yesterday afternoon when he began to notice intermittent episodes substernal chest discomfort with associated nausea and diaphoresis. On presentation emergency room, he was found to have inferior ST-elevation and developed some hypotension and intermittent complete heart block. He was urgently taken to the cardiac catheterization lab. A transvenous pacemaker was placed and he had 2 stents placed within an occluded distal RCA (2.5 x 18 Xience and a 2 x 16 Xience). He also had a TAISHA placed within the mid LAD (3 X 16 Xience). The patient has been pain-free since his procedure. He is anxious to have the transvenous pacemaker removed from his right groin. Past medical and surgical history 1. Coronary artery disease-see above 2. Distal RCA TAISHA x2-see above 3. Mid LAD TAISHA-see above 4. Hypercholesterolemia 5. GERD 6. Allergic rhinitis 7. 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 Mother at 58 from a carcino ma Review of systems A 10 point review systems was undertaken and negative except that described above. Allergies Allergy/AdvReac Type Severity Reaction Status Date / Time No Known Allergies Allergy Unverified 08/06/14 09:52 Home Medications Medication Instructions Recorded Confirmed Type azelastine 137 mcg (0.1 %) nasal 2 spray intranasal DAILY #30 mL 01/19/24 02/21/24 Rx spray aerosol fluticasone propionate 50 2 spray intranasal DAILY #15.8 01/19/24 02/21/24 Rx mcg/actuation nasal grams spray,suspension loratadine 10 mg tablet (Claritin) 10 mg PO DAILY 01/19/24 02/21/24 History omega 7-tuy-cgl-fish oil 1,000 mg 1 cap PO DAILY 02/21/24 02/21/24 History (120 mg-180 mg) capsule (Fish Oil) Patient History Surgical History (Updated 01/19/24 @ 09:45 by Dejah Avilez MA) History of colonoscopy Family History (Updated 01/19/24 @ 09:46 by Dejah Avilez MA) Father Hypertension Heart disease Mother Colorectal cancer Other No family history of adverse response to anesthesia No family history of bleeding disorder Social History (Updated 01/19/24 @ 09:46 by Dejah Avilez MA) Smoking Status: Unknown if ever smoked Hx Alcohol Use: Yes Alcohol type: wine Hx Substance Use: No Preferred Language: Singaporean Communication Ability: Effective Practice Support Specialist Required: No Beliefs That Will Affect Care: None marital status: Current Living Situation: Spouse current occupational status: employed 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 HEENT exam is negative. Neck is supple with full carotid upstrokes. There are no carotid bruits. Jugular venous pressure is flat at 90. There is no thyromegaly. Cardiovascular exam reveals a regular rhythm with a normal S1 and S2. No S3, S4, or murmurs are noted. Lungs are clear without rales, rhonch i, or wheezes. Abdomen is soft and nontender without bruits. Extremities reveal intact radial artery and posterior tibial pulses bilaterally. There is a dressing and transvenous pacemaker in the right groin. Results & Data Vital Signs (Past 12 Hours) Vital Signs Temp Pulse Resp BP Pulse Ox O2 Del Method O2 Flow Rate 02/22/24 15:00 82 18 123/86 94 02/22/24 14:27 89 20 143/94 H 91 02/22/24 13:09 86 16 138/79 92 02/22/24 12:03 94 H 22 154/104 H 92 02/22/24 11:06 81 14 129/92 91 02/22/24 10:00 139/92 02/22/24 09:57 80 18 96 02/22/24 09:06 88 16 93 02/22/24 09:00 150/92 H 02/22/24 08:57 147/93 H 02/22/24 08:52 97 H 02/22/24 08:48 105 H 19 93 02/22/24 08:00 90 13 140/95 95 02/22/24 07:56 Oxymask 02/22/24 07:47 Oxymask 2 02/22/24 07:25 36.8 C 02/22/24 07:18 96 H 18 95 Oxymask 2 02/22/24 07:00 136/89 02/22/24 06:00 93 H 20 123/79 94 02/22/24 05:06 97 H 13 120/80 93 2 Laboratory Results [place] [address].8. Diagnostic Findings EKG notes sinus rhythm with a right bundle branch block and inferior myocardial infarction pattern. 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 Chest x-ray shows no acute disease. PG Care Time/CCT Total # of Minutes Spent Total Time Spent with Patient: Total time spent is greater than 50% in coordination of care (as documented) at patient's floor/unit and/or counseling patient: Coding Level of Care Code 61913 OFFICE CONSULT LVL [address]M Diagn[address] ST elevation (STEMI) myocardial infarction I21.3 Complete heart block I44.2 Hypercholesterolemia E78.00
--- NOTE | 2024-02-22 17:00 | Electrocardiogram Report ---
Test Reason : Blood Pressure : / mmHG Vent. Rate : 069 BPM Atrial Rate : 069 BPM P-R Int : 148 ms QRS Dur : 134 ms QT Int : 406 ms P-R-T Axes : 068 007 044 degrees QTc Int : 435 ms Normal sinus rhythm Right bundle branch block Abnormal ECG No previous ECGs available Confirmed by Iftikhar Machado ([id number]) on 02/22/2024 5:00:09 PM Referred By: REFERRED SELF Confirmed By:Iftikhar Machado
--- NOTE | 2024-02-22 17:02 | Electrocardiogram Report ---
Test Reason : Blood Pressure : / mmHG Vent. Rate : 068 BPM Atrial Rate : 068 BPM P-R Int : 168 ms QRS Dur : 134 ms QT Int : 420 ms P-R-T Axes : 067 -02 079 degrees QTc Int : 446 ms Normal sinus rhythm Right bundle branch block Inferior ST abnormality Abnormal ECG When compared with ECG of 21-FEB-2024 17:41, (unconfirmed) ST elevation now present in Inferior leads Confirmed by Iftikhar Machado ([id number]) on 02/22/2024 5:02:19 PM Referred By: REFERRED SELF Confirmed By:Iftikhar Machado
--- NOTE | 2024-02-22 17:05 | Electrocardiogram Report ---
Test Reason : Blood Pressure : / mmHG Vent. Rate : 093 BPM Atrial Rate : 093 BPM P-R Int : 164 ms QRS Dur : 142 ms QT Int : 404 ms P-R-T Axes : 074 018 018 degrees QTc Int : 502 ms Normal sinus rhythm with sinus arrhythmia Right bundle branch block Inferior infarct , age undetermined Abnormal ECG When compared with ECG of 21-FEB-2024 19:57, (unconfirmed) Sinus rhythm has replaced Idioventricular rhythm Vent. rate has increased BY 54 BPM Confirmed by Iftikhar Machado ([id number]) on 02/22/2024 5:05:10 PM Referred By: REFERRED SELF Confirmed By:Iftikhar Machado
--- NOTE | 2024-02-22 17:05 | Electrocardiogram Report ---
Test Reason : Blood Pressure : / mmHG Vent. Rate : 039 BPM Atrial Rate : 053 BPM P-R Int : 000 ms QRS Dur : 138 ms QT Int : 494 ms P-R-T Axes : 071 068 066 degrees QTc Int : 397 ms Sinus bradycardia with A-V dissociation and Idioventricular rhythm Right bundle branch block Abnormal ECG When compared with ECG of 21-FEB-2024 19:35, (unconfirmed) Idioventricular rhythm has replaced Sinus rhythm Confirmed by Iftikhar Machado ([id number]) on 02/22/2024 5:05:25 PM Referred By: REFERRED SELF Confirmed By:Iftikhar Machado
--- NOTE | 2024-02-22 17:06 | Electrocardiogram Report ---
Test Reason : Blood Pressure : / mmHG Vent. Rate : 045 BPM Atrial Rate : 045 BPM P-R Int : 136 ms QRS Dur : 132 ms QT Int : 430 ms P-R-T Axes : 041 048 066 degrees QTc Int : 371 ms Sinus bradycardia Right bundle branch block Abnormal ECG When compared with ECG of 21-FEB-2024 18:32, (unconfirmed) Vent. rate has decreased BY [address] no longer elevated in Inferior leads QT has shortened Confirmed by Iftikhar Machado ([id number]) on 02/22/2024 5:05:35 PM Referred By: REFERRED SELF Confirmed By:Iftikhar Machado
--- NOTE | 2024-02-22 17:10 | Electrocardiogram Report ---
Test Reason : Blood Pressure : / mmHG Vent. Rate : 091 BPM Atrial Rate : 091 BPM P-R Int : 148 ms QRS Dur : 138 ms QT Int : 392 ms P-R-T Axes : 077 013 040 degrees QTc Int : 482 ms Normal sinus rhythm Right bundle branch block Inferior infarct (cited on or before 21-FEB-2024) Abnormal ECG When compared with ECG of 21-FEB-2024 22:03, (unconfirmed) No significant change was found Confirmed by Iftikhar Machado ([id number]) on 02/22/2024 5:10:00 PM Referred By: REFERRED SELF Confirmed By:Iftikhar Machado
[2024-02-23] MEDS ORDERED: TICAGRELOR 90 MG TAB PO SCH
[2024-02-23 05:16] LABS: Basophils # (auto) 0.02 K/uL (0.00-0.20); Basophils % (auto) 0.3 %; Eosinophils % (auto) 2.9 %; Hematocrit (blood only) 41.3 % (42.0-52.0); Immature Granulocytes # (auto) 0.03 K/uL (0.01-0.20); Immature Granulocytes % (auto) 0.4 %; Lymphocytes # (auto) 1.06 K/uL (1.20-3.40); Lymphocytes % (auto) 15.3 %; Mean Corpuscular Hemoglobin 31.5 pg (25.0-34.0); Mean Corpuscular Hgb Conc 33.9 g/dL (32.0-36.0); Mean Corpuscular Volume 92.8 fL (80.0-100.0); Monocytes % (auto) 7.2 %; Neutrophils # (auto) 5.13 K/uL (1.40-6.50); Neutrophils % (auto) 73.9 %; Platelet Count 177 K/uL (130-400); RDW Coefficient of Variation 12.8 % (11.5-14.5); RDW Standard Deviation 43.4 fL (36.4-46.3); Red Blood Count 4.45 M/uL (4.70-6.10); White Blood Count 6.94 K/ul (4.8-10.8)
[2024-02-23 05:35] LABS: Albumin Level 3.9 gm/dl (3.4-5.0); Bilirubin Direct 0.1 mg/dl (0-0.2); Bilirubin,Total 0.8 mg/dl (0.2-1.0); Magnesium 2.2 mg/dl (1.7-2.4); Phosphorus 2.8 mg/dl (2.5-4.9); Total Protein 6.3 gm/dl (6.0-8.3)
[2024-02-23] MEDS: lisinopril 5 MG TAB PO SCH (08:59)
[2024-02-23] MEDS: METOPROLOL SUCC 25MG EXT REL TAB PO SCH (08:59)
[2024-02-23] MEDS: OMEGA-3 (PURIFIED FISH OIL) 1 GM CAP PO SCH (09:01)
[2024-02-23] MEDS: FLUTICASONE PROPIONATE NA SPR 16 GM BTL SCH (09:01)
--- NOTE | 2024-02-23 11:53 | Cardiology Progress Note ---
Date of Service February 23, 2024 Assessment & Plan (1) ST elevation (STEMI) myocardial infarction: Plan: -troponin has peaked at 11,000. -echo notes hyperdynamic systolic function, LVH, and no wall motion abnormalities. -continue Brilinta, aspirin, metoprolol succinate, and lisinopril. -dual anti-platelet therapy for least 1 year. -stable for hospital discharge. -I am happy to see him in follow-up. (2) Complete heart block: Plan: -likely secondary to the acute event. -pacemaker removed yesterday. -no recurrence event. (3) Hypercholesterolemia: Plan: -continue high-intensity statin. Admission and Anticipated Discharge Date Admission Date: February 21, 2024 Subjective The patient is resting comfortably in bed without chest pain or dyspnea. He is anxious for hospital discharge. Physical Exam Physical Exam: In general this is a well-developed well-nourished white male in no acute distress. HEENT exam is negative. Neck is supple with full carotid upstrokes. There are no carotid bruits. Jugular venous pressure is flat at 90. There is no thyromegaly. Cardiovascular exam reveals a regular rhythm with a normal S1 and S2. No S3, S4, or murmurs are noted. Lungs are clear without rales, rhonchi, or wheezes. Abdomen is soft and nontender without bruits. Extremities reveal intact radial artery and posterior tibial pulses bilaterally. 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 PG Care Time/CCT Total # of Minutes Spent Total Time Spent with Patient: Total time spent is greater than 50% in coordination of care (as documented) at patient's floor/unit and/or counseling patient: Coding Level of Care Code 57681 SUB INP/OBS CARE 3/50MIN Diagnoses ST elevation (STEMI) myocardial infarction I21.3 Complete heart block I44.2 Hypercholesterolemia E78.00
--- NOTE | 2024-02-23 12:51 | Electrocardiogram Report ---
Test Reason : Blood Pressure : / mmHG Vent. Rate : 088 BPM Atrial Rate : 088 BPM P-R Int : 142 ms QRS Dur : 138 ms QT Int : 392 ms P-R-T Axes : 068 -20 -05 degrees QTc Int : 474 ms Normal sinus rhythm Right bundle branch block Inferior infarct (cited on or before 21-FEB-2024) Abnormal ECG When compared with ECG of 22-FEB-2024 04:35, Questionable change in initial forces of Inferior leads Confirmed by Iftikhar Machado ([id number]) on 02/23/2024 12:50:30 PM Referred By: REFERRED SELF Confirmed By:Iftikhar Machado
--- NOTE | 2024-02-23 17:28 | Discharge Summary ---
Discharge Summary Date of Service February 23, 2024 Principal Dx & Hospital Course #1 = Principal Diagnosis (1) ST elevation (STEMI) myocardial infarction: STEMI/heart alert/intermittent complete heart block, total RCA occlusion and mid LAD occlusion with concerns for cardiogenic shock and hypotension Stent x 2 to RCA and X1 to LAD Patient did have transcutaneous pacer placed during catheterization, and decision was made by cardiology to remove transvenous pacer on 02/21, right groin was inspected prior to discharge no suspicion of pseudoaneurysm no pulsatile masses or bruits not significantly tender or bruised Aspirin 81 mg daily + Brilinta 90 mg p.o. twice daily Lipitor 80 mg p.o. daily Lisinopril 5 mg p.o. daily Metoprolol succinate 25 mg p.o. daily Patient able to resume home fish oil and was encouraged to be on a Mediterranean diet Admission HPI Per Admitting Provider The patient is a 63-year-old male with past medical history including conductive hearing loss right ear, GERD, and seasonal allergies. He had initial development of chest pain around 4:00 this afternoon, about 5 minutes duration, and after he ate recurred a number of episodes afterwards, he called 911 and brought to the ED for assessment significant workup in the emergency department included a troponin 201.8, and EKG showing ST elevations in leads III and aVF with ST depressions in aVL. The patient initially had maintained blood pressure, but then developed hypotension to 75/40, and heart rhythm became variable including episodes of third-degree heart block. Heart alert was called , and patient was taken emergently to the [facility], where he received a TAISHA to a occluded RCA lesion, and TAISHA to a mid LAD lesion. Patient was then admitted to the ICU for ongoing care Discharge Exam Awake alert appropriate. Cardiac exam is regular lungs are clear Right groin site is without bruising or suspicion for pseudoaneurysm distal pul ses and capillary refill are intact on the right leg Updated Medication List Medication Instructions Recorded Confirmed Type azelastine 137 mcg (0.1 %) nasal 2 spray intranasal DAILY #30 mL 01/19/24 02/21/24 Rx spray aerosol fluticasone propionate 50 2 spray intranasal DAILY #15.8 01/19/24 02/21/24 Rx mcg/actuation nasal grams spray,suspension loratadine 10 mg tablet (Claritin) 10 mg PO DAILY 01/19/24 02/21/24 History omega 5-wcm-zxi-fish oil 1,000 mg 1 cap PO DAILY 02/21/24 02/21/24 History (120 mg-180 mg) capsule (Fish Oil) aspirin 81 mg tablet,delayed 81 mg PO QAM #90 tabs 02/23/24 Rx release atorvastatin 40 mg tablet 80 mg (2 x 40 mg) PO QAM #30 tabs 02/23/24 Rx lisinopril 5 mg tablet (Zestril) 5 mg PO QAM #30 tabs 02/23/24 Rx metoprolol succinate 25 mg 25 mg PO QAM #30 tabs 02/23/24 Rx tablet,extended release 24 hr ticagrelor 90 mg tablet (Brilinta) 90 mg PO BID #60 tabs 02/23/24 Rx Hospital Stay Data Consultations 02/21/24 19:28 ED Decision to Admit Stat 02/21/24 21:51 Consult Hide Salter Routine 02/22/24 12:36 Consult Cardiology Routine Procedures Performed Operation Date: 02/21/24 16:00 Actual Procedures p Cineradiography w/Routine Exam - Feliciano Johnson MD p Aspiration/PCI w/TAISHA for Stemi - Feliciano Johnson MD s Temporary Transcutaneous Pacing - Feliciano Johnson MD p Cath, Left with Cors and Vent - Feliciano Johnson MD Diagnostic Imagining Performed 02/21/24 20:02 CL Cath Imgs for PACS use only Stat Pending Results Patient Have Any Pending Studies at Discharge: No Discharge Instructions Given to Patient (Per Discharging Provider) ACTIVITY RECOMMENDATIONS: Excess bending or leg flexion should be avoided for the next 24-48 hours. * No strenuous activity such as bowling or tennis for 3 days. * Keep the site of the procedure covered with a bandage for 24 hours. *You may shower the day after the procedure. Do not take a tub bath or submerge the puncture site in water for the next 3 days. *Do not operate any motorized equipment for 3 days, from your procedure SPECIAL CARE INSTRUCTIONS: The site may be slightly bruised and sore following your procedure. Should any of the following occur, contact the DrJacobo who performed your procedure. 1. Redness/inflammation, swelling, chills, or fever, or colored drainage at proc edure site within 3-7 days after your procedure. 2. Coldness, discoloration, ongoing numbness, severe pain, or swelling. Expect mild tingling of hand and tenderness at the puncture site for up to three days. If this persists beyond three days, or other symptoms develop, notify the Dr. who performed your procedure. BLEEDING: If the procedure site begins to bleed, do not panic 1. Place 1 or 2 fingers firmly just slightly above the insertion site to stop the bleeding. You may be able to feel your pulse as you hold pressure. 2. Lift your finger after 5 minutes to see if the bleeding has stopped. 3. Once the bleeding has stopped, gently wipe the wrist area clean with a bandage. * If the bleeding does not stop after 10 minutes, or if there is a large amount of bleeding or spurting, call 911 (do not drive yourself to the hospital). SKIN IRRITATION: * You may experience some redness and/or swelling in the area where radiation( x ray) was administered. If any skin irritation occurs, please contact your family physician. FOLLOW UP VISIT: Keep any scheduled doctor appointments. Total Time Total Time Spent Total Time Spent (In Minutes): It required greater than 30 minutes to prepare this patient for discharge. Coding Level of Care Code 32362 INP/OBS DISCH >[address] elevation (STEMI) myocardial infarction I21.3
== END 2024-02-23 14:18 | disposition home or self-care (01) | DRG 322 ==
LOC: ED 17:37 → CC 20:20 → 1E 21:51 → SUATTDRO 21:51
PROC: CLB.TTP (2024-02-21 16:00)